=== PATIENT | female | born 1960 ===

== ENCOUNTER 2019-04-03 11:54 | Emergency (ER) | payer SELFPAY ==
[2019-04-03 12:01] VITALS: BMI 25.7
[2019-04-03 12:02] VITALS: RESP 17
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
--- NOTE | 2019-04-03 15:35 | RAD ---
Date of service: 04/03/2019 PROCEDURE: Radiographs of the Chest and Right Ribs. HISTORY: fall/ rib pain COMPARISON: None available. TECHNIQUE: Frontal radiograph of the chest and multiple oblique radiographs of the right ribs were obtained. 4 views obtained. FINDINGS: RIGHT RIBS: A nondisplaced right 6th [place] [id number], image 3 is noted LUNGS: Clear. PLEURA: No pneumothorax or pleural fluid. CARDIOVASCULAR: Normal cardiac size. No pulmonary vascular congestion. No aortic atherosclerotic calcification present OTHER FINDINGS: None. IMPRESSION: Nondisplaced right lateral acute appearing 6 th rib fracture
[2019-04-03] MEDS ORDERED: Bacitracin 500 Units/gm Oint Foilpak UD ONE (16:49)
[2019-04-03 17:31] VITALS: BP 135/86; PULSE 74; TEMP 98.5
[2019-04-03 17:35] VITALS: O2SAT 98
== END 2019-04-03 17:29 | disposition home or self-care (01) ==
LOC: H.ER 11:54
DX: S22.49XA Multiple fractures of ribs, unspecified side, initial encounter for closed fracture (principal); W19.XXXA Unspecified fall, initial encounter; Y92.89 Other specified places as the place of occurrence of the external cause; E03.9 Hypothyroidism, unspecified; E78.00 Pure hypercholesterolemia, unspecified
CPT/HCPCS: 71101; 96372; 99284; J1885